=== PATIENT | male | born 1935 | race Caucasian/White ===

== ENCOUNTER → 2021-11-16 | Outpatient (CLI) | payer BC, MEDICARE ==
[~2021-11-16] MED LIST: BAMLANIVIMAB (EUA) 700 MG, ETESEVIMAB (EUA) 1,400 MG in SODIUM CHLORIDE 0.9% 100 ML IVPB NR; SODIUM CHLORIDE 0.9% 50 ML IVPB ONE; SODIUM CHLORIDE 0.9% 500 ML 500 ML in EMPTY BAG 1 BAG IV PRN
[2021-11-16 10:39] VITALS: RESP 16
[2021-11-16 11:18] VITALS: BP 112/66; PULSE 64; TEMP 97
== END | disposition home or self-care (01) ==
LOC: PROCWHC3 09:56
PROVIDERS: ATTEND Internal Medicine
DX: U07.1 COVID-19 (principal)
CPT/HCPCS: 96360; J3490; M0245